=== PATIENT | female | born 1960 | race Two or more races ===

== ENCOUNTER 2020-06-04 12:40 | Emergency (ER) | payer MEDICAID ==
[~2020-06-04] VITALS: Ht 165.1 cm; Wt 65.0 kg
[2020-06-04] MEDS ORDERED: IBUPROFEN 600MG TABLET PO STA (13:18)
[2020-06-04] MEDS ORDERED: MAGNESIUM/ALUMINUM HYDROXIDE/SIMETHICONE 30ML UDC PO STA (13:18)
[2020-06-04] MEDS ORDERED: FAMOTIDINE 20MG TABLET PO ONE (13:30)
[2020-06-04 13:40] VITALS: BP 146/95
[2020-06-04 14:43] LABS: CLARITY URINE CLEAR (CLEAR); COLOR URINE YELLOW (YELLOW); KETONES URINE NEGATIVE (NEGATIVE); LEUKOCYTE ESTERASE URINE NEGATIVE (NEGATIVE); NITRITE URINE NEGATIVE (NEGATIVE); OCCULT BLOOD URINE 1+ (NEGATIVE); PROTEIN URINE NEGATIVE (NEGATIVE); SPECIFIC GRAVITY URINE 1.018 (1.005-1.030); UROBILINOGEN URINE 0.2 E.U./dL (0.2-1.0)
[2020-06-04 14:46] LABS: BASOPHILS % 0.4 % (0.0-2.0); EOSINOPHILS % 0.9 % (0.0-5.0); HEMATOCRIT. 43.9 % (36.0-48.0); HEMOGLOBIN. 14.6 g/dL (12.0-16.0); LYMPHOCYTES % 14.8 % (20.0-50.0); MEAN CORPUSCULAR HEMOGLOBIN 30.5 pg (28.0-32.0); MEAN CORPUSCULAR VOLUME 91.3 fL (81.0-99.0); MEAN PLATELET VOLUME 7.9 fl (7.4-10.4); MONOCYTES % 5.1 % (2.0-8.0); NEUTROPHILS % 78.8 % (40.0-76.0); PLATELET 265 x1000/uL (130-400); RED CELL DISTRIBUTION WIDTH 13.1 % (11.6-14.6)
[2020-06-04 14:49] LABS: CHLORIDE 106 mEq/L (98-107)
[2020-06-04 14:50] LABS: PROTHROMBIN TIME 10.6 sec (9.6-11.0)
[2020-06-04] MEDS ORDERED: IBUP-2029 MT (15:46)
[2020-06-04] MEDS ORDERED: FAMO-135 MT (15:46)
== END 2020-06-04 16:42 | disposition home or self-care (01) ==
LOC: ER 12:40
DX: R10.13 Epigastric pain (principal); R51.9 Headache, unspecified
CPT/HCPCS: 36415; 80053; 81003; 85025; 99284